=== PATIENT | male | born 2000 | race Caucasian/White ===

== ENCOUNTER 2019-11-04 09:32 | Emergency (ER) | payer OTHER ==
[2019-11-05 16:05] LABS: SARS-CoV-2 MS2 Positive; SARS-CoV-2 N Gene Negative; SARS-CoV-2 S Gene Negative; SARS-CoV-2 orf1ab Negative
== END 2019-11-04 10:02 | disposition home or self-care (01) ==
LOC: ERS 09:32
DX: Z20.828 Contact with and (suspected) exposure to other viral communicable diseases (principal)
CPT/HCPCS: 87635; 99283; U0003

== ENCOUNTER 2022-01-20 03:42 | Emergency (ER) | payer OTHER ==
[2022-01-20] MEDS ORDERED: Ibuprofen 200 MG TAB ONE (05:42)
[2022-01-20] MEDS ORDERED: Lidocaine 1% PF 5 ML VIAL ONE (06:11)
== END 2022-01-20 07:04 | disposition home or self-care (01) ==
LOC: ERS 03:42
DX: S01.511A Laceration without foreign body of lip, initial encounter (principal); V89.2XXA Person injured in unspecified motor-vehicle accident, traffic, initial encounter
CPT/HCPCS: 12011